=== PATIENT | male | born 1975 | race Caucasian/White ===

== ENCOUNTER 2023-03-07 06:18 | Emergency (ER) | payer OTHER ==
--- OUTSIDE RECORDS SUMMARY | 2023-03-07 06:22 | XMS REPORT | Continuity of Care Document ---
:1975 Author Organization [facility] t Address [address] [place] [address] Care Team Providers Name Role Phone Denisa Newton Attending Clinician Unavailable Alicia Do Attending Clinician Unavailable Payers Payer Name Policy Type Policy Number Effective Date Expiration Date S edmund Ambetter from [id number] Common Spi rit [facility] Ambetter from [id number] Common Spi rit [facility] Ambetter from [id number] Common Spi rit [facility] Ambetter from [id number] Common Spi rit [facility] Problems Condition Condition Condition Status Onset Resolution Last Treating Co mments Source Name Details Category Date Date Treatment Clinician Date Essential Benign Problem Active Common hypertensi essential Spi rit on HTN [facility] Anxiety Anxiety Problem Active Common Spirit [facility] Allergic Allergic Problem Active Commo n rhinitis rhinitis, Spiri t unspecifie - [facility] Cardiac Cardiac Problem Active Common arrhythmia arrhythmia Sp damian [facility] Left LBBB (left Problem Active Commo n bundle bundle Spirit branch branch - [facility] block block) [facility] Allergies, Adverse Reactions, Alerts Allergy Allergy Status Severity Reaction(s) Onset Inactive Treating Comm ents Source Name Type Date Date Clinician escitalo escitalo Active Unknown Commo n pram pram [facility] Social History Social Habit Start Date Stop Date Quantity Comments Source History of Tobacco Use Co mmon [facility] Sex Assigned At Com mon [facility] Smoking Status Start Date Stop Date Source Never Smoker Common [facility] Medications Ordered Filled Start Stop Current Ordering Indication Dosage Frequency Signature Comments Components Source Medication Medication Date Date Medication? Clinician (SIG) Name Name Aznela Martinezithromyci 2021- No QD Azithromyc n 250 MG n 250 MG 02-27 in 250 MG 00:00: 00:00 00 :00 Azithromyci Azithromyci 0 2021- No QD Azithromyc n 250 MG n 250 MG 02-27 in 250 MG 00:00: 00:00 00 :00 Escitalopra Escitalopra 2020-0 No 1{table QD Escitalopr m Oxalate m Oxalate 6-25 t} am Oxalate 10 MG 10 MG 00:00: 10 MG 00 Escitalopra Escitalopra 2020-0 No 1{table QD Escitalopr m Oxalate m Oxalate 6-25 t} am Oxalate 10 MG 10 MG 00:00: 10 MG 00 Escitalopra Escitalopra 2020-0 No 1{table QD Escitalopr m Oxalate m Oxalate 6-25 t} am Oxalate 10 MG 10 MG 00:00: 10 MG 00 Escitalopra Escitalopra 2020-0 No 1{table QD m Oxalate m Oxalate 6-25 t} 10 MG 10 MG 00:00: 00 Escitalopra Escitalopra 2020-0 No 1{table QD Escitalopr m Oxalate m Oxalate 6-25 t} am Oxalate 10 MG 10 MG 00:00: 10 MG 00 Escitalopra Escitalopra 2020-0 No 1{table QD Escitalopr m Oxalate m Oxalate 6-25 t} am Oxalate 10 MG 10 MG 00:00: 10 MG 00 Escitalopra Escitalopra 2020-0 No 1{table QD Escitalopr m Oxalate m Oxalate 6-25 t} am Oxalate 10 MG 10 MG 00:00: 10 MG 00 Escitalopra Escitalopra 2020-0 No 1{table QD Escitalopr m Oxalate m Oxalate 6-25 t} am Oxalate 10 MG 10 MG 00:00: 10 MG 00 Metoprolol Metoprolol No 1{table QD Metoprolol Succinate Succinate t} Succinate ER 25 MG ER 25 MG ER 25 MG Atenolol-Ch Atenolol-Ch No Atenolol-C lorthalidon lorthalidon hlorthalid e 50-25 MG e 50-25 MG one 50-25 MG Metoprolol Metoprolol No Metoprolol Tartrate 25 Tartrate 25 Tartrate MG MG 25 MG Atenolol-Ch Atenolol-Ch No Atenolol-C lorthalidon lorthalidon hlorthalid e 50-25 MG e 50-25 MG one 50-25 MG Metoprolol Metoprolol No Metoprolol Tartrate 25 Tartrate 25 Tartrate MG MG 25 MG Atenolol-Ch Atenolol-Ch No Atenolol-C lorthalidon lorthalidon hlorthalid e 50-25 MG e 50-25 MG one 50-25 MG Metoprolol Metoprolol No Tartrate 25 Tartrate 25 MG MG Atenolol-Ch Atenolol-Ch No lorthalidon lorthalidon e 50-25 MG e 50-25 MG Metoprolol Metoprolol No BID Metoprolol Tartrate 25 Tartrate 25 Tartrate MG MG 25 MG Atenolol-Ch Atenolol-Ch No Atenolol-C lorthalidon lorthalidon hlorthalid e 50-25 MG e 50-25 MG one 50-25 MG Atenolol-Ch Atenolol-Ch No Atenolol-C lorthalidon lorthalidon hlorthalid e 50-25 MG e 50-25 MG one 50-25 MG Metoprolol Metoprolol No 1{table QD Metoprolol Succinate Succinate t} Succinate ER 25 MG ER 25 MG ER 25 MG Atenolol-Ch Atenolol-Ch No Atenolol-C lorthalidon lorthalidon hlorthalid e 50-25 MG e 50-25 MG one 50-25 MG Metoprolol Metoprolol No 1{table QD Metoprolol Succinate Succinate t} Succinate ER 25 MG ER 25 MG ER 25 MG Atenolol-Ch Atenolol-Ch No Atenolol-C lorthalidon lorthalidon hlorthalid e 50-25 MG e 50-25 MG one 50-25 MG Metoprolol Metoprolol No 1{table QD Metoprolol Succinate Succinate t} Succinate ER 25 MG ER 25 MG ER 25 MG Immunizations Ordered Immunization Filled Immunization Date Status Commen ts Source Name Name Adacel (Tdap) Adacel (Tdap) 2021-03-28 Completed Common S pirit 09:02:00 [facility] Adacel (Tdap) Adacel (Tdap) 2021-03-28 Completed Common S pirit 09:02:00 [facility] Adacel (Tdap) Adacel (Tdap) 2021-03-28 Completed Common S pirit 09:02:00 [facility] Adacel (Tdap) Adacel (Tdap) 2021-03-28 Completed Common S pirit 09:02:00 - [facility] Adacel (Tdap) Adacel (Tdap) 2021-03-28 Completed Common S pirit 09:02:00 - [facility] Adacel (Tdap) Adacel (Tdap) 2021-03-28 Completed Common S pirit 09:02:00 - [facility] Adacel (Tdap) Adacel (Tdap) 2021-03-28 Completed Common S pirit 09:02:00 - [facility] Adacel (Tdap) Adacel (Tdap) 2021-03-28 Completed Common S pirit 09:02:00 [facility] Vital Signs Vital Name Observation Time Observation Value Comments Source height 2022-04-02 11:20:00 71 [in_i] [facility] weight 2022-04-02 11:20:00 266.9 [lb_av] Common Spirit [facility] temperature 2022-04-02 11:20:00 98.7 [degF] [facility] bmi 2022-04-02 11:20:00 37.22 kg/m2 [facility] oximetry 2022-04-02 11:20:00 97 % [facility] respiratory rate 2022-04-02 11:20:00 18 /min Comm on [facility] blood pressure 2022-04-02 11:20:00 137 mm[Hg] Common [facility] - systolic [facility] blood pressure 2022-04-02 11:20:00 84 mm[Hg] Common [facility] - diastolic [facility] height 2022-02-27 10:00:00 71 [in_i] [facility] weight 2022-02-27 10:00:00 260 [lb_av] [facility] bmi 2022-02-27 10:00:00 36.26 kg/m2 [facility] weight 2021-10-01 11:40:00 270 [lb_av] [facility] bmi 2021-10-01 11:40:00 37.65 kg/m2 [facility] height 2021-10-01 11:40:00 71 [in_i] [facility] height 2021-06-28 10:00:00 71 [in_i] [facility] weight 2021-06-28 10:00:00 276.0 [lb_av] [facility] temperature 2021-06-28 10:00:00 96.7 [degF] [facility] bmi 2021-06-28 10:00:00 38.49 kg/m2 [facility] oximetry 2021-06-28 10:00:00 98 % [facility] respiratory rate 2021-06-28 10:00:00 18 /min Comm on [facility] blood pressure 2021-06-28 10:00:00 119 mm[Hg] Common [facility] systolic [facility] blood pressure 2021-06-28 10:00:00 80 mm[Hg] [facility] diastolic [facility] Procedures This patient has no known procedures. Encounters Start End Encounter Admission Attending Care Care Encounter Source Date/Time Date/Time Type Type Clinicians Facility Department ID 2022-09-27 Outpatient Newton, STLMLC STLMLC [id number] Common 08:09:01 Avnee [id number] [facility] 2022-04-02 Outpatient Newton, STLMLC STLMLC [id number] Common 11:08:03 Avnee [facility] 2021-10-17 Outpatient Newton, STLMLC STLMLC [id number] Common 14:32:50 Avnee [facility] 2021-10-17 Outpatient Newton, STLMLC STLMLC [id number] Common 14:32:08 Avnee [facility] 2021-10-17 Outpatient Newton, STLMLC STLMLC [id number] Common 13:18:47 Avnee [id number] [facility] 2021-10-17 Outpatient STLMLC STLMLC [id number] Common 13:17:05 [id number] [facility] 2021-10-17 Outpatient Hi, STLMLC STLMLC [id number] Common 13:04:04 Alicia 22573 [facility] 2021-10-17 Outpatient Hi, STLMLC STLMLC [id number] Common 12:58:39 Alicia 20342 [facility] 2021-10-17 Outpatient Hi, STLMLC STLMLC [id number] Common 12:15:52 Alicia [id number] [facility] 2021-10-17 Outpatient STLMLC STLMLC [id number] Common 12:12:05 [id number] [facility] 2022-04-02 2022-04-02 PREV VISIT STLMLC STLMLC [id number] Common 00:00:00 00:00:00 EST AGE Spirit [age] [facility] 2022-02-27 2022-02-27 OFFICE STLMLC STLMLC [id number] Co mmon 00:00:00 00:00:00 VISIT EST Spir it PT LEVEL 3 - [facility] 2022-02-26 2022-02-26 (TEL) STLMLC STLMLC [id number] Co mmon 00:00:00 00:00:00 [facility] 2021-10-01 2021-10-01 OFFICE STLMLC STLMLC [id number] Co mmon 00:00:00 00:00:00 VISIT EST Spir it PT LEVEL 3 [facility] 2021-06-28 2021-06-28 OFFICE STLMLC STLMLC [id number] Co mmon 00:00:00 00:00:00 VISIT EST Spir it PT LEVEL 3 [facility] 2021-04-18 2021-04-18 (TEL) STLMLC STLMLC [id number] Co mmon 00:00:00 00:00:00 [facility] 2021-04-05 2021-04-05 (TEL) STLMLC STLMLC [id number] Co mmon 00:00:00 00:00:00 [facility] 2021-03-28 2021-03-28 Outpatient STLMLC STLMLC [id number] Common 00:00:00 00:00:00 [facility] 2021-03-16 2021-03-16 (TEL) STLMLC STLMLC [id number] Co mmon 00:00:00 00:00:00 [facility] 2021-03-15 2021-03-15 Outpatient STLMLC STLMLC [id number] Common 00:00:00 00:00:00 [facility] 2020-09-04 2020-09-04 Outpatient STLMLC STLMLC [id number] Common 00:00:00 00:00:00 [facility] 2020-08-31 2020-08-31 Outpatient STLMLC STLMLC [id number] Common 00:00:00 00:00:00 [facility] 2019-07-30 2019-07-30 Outpatient [facility] [address] 05:09:00 05:09:00 vero pham Results Test Description Test Time Test Comments Results Result Comments Source Lipid Panel With LDL/HDL Ratio 2022-04-02 00:00:00 Test Item Value Reference Range Interpretation Comme nts Cholesterol, Total (test code 191 mg/dL See_Comment [Automated message] The system = 3-3) which generated this result transmitted ref erence range: 100-199 mg/dL. The reference range was not u sed to interpret this result as normal/abnormal. Triglycerides (test code = 107 mg/dL See_Comment [Automated message] The system 7281-8) which generated this result transmitted ref erence range: 0-149 mg/dL. Th e reference range was not used to interpret this result as dane l/abnormal. HDL Cholesterol (test code = 39 mg/dL See_Comment L [Automated message] The system 2084-) which generated this result transmitted ref erence range: >39 mg/dL. The refe rence range was not used to int erpret this result as dane l/abnormal. UA/M w/rflx Culture, [id number] 00:00:00 Test Item Value Reference Range Interpretation Comments Specific [place] (test 1.021 1.005-1.030 code = 2965-2) pH (test code = 6.0 5.0-7.5 5803-2) Urine-Color (test code Yellow Yellow = 5778-6) Appearance (test code Clear Clear = 5767-9) WBC Esterase (test Negative Negative code = 5799-2) Protein (test code = Negative Negative/Trace 02488-7) Glucose (test code = Negative Negative 2349-9) Ketones (test code = Trace Negative A 2514-8) Occult Blood (test Negative Negative code = 5794-3) Bilirubin (test code = Negative Negative 5770-3) Urobilinogen,Semi-Qn 0.2 mg/dL See_Comment [Autom ated message] (test code = 65773-7) The sy stem which generated this result transmitted ref erence range: 0.2-1.0 mg/dL. The reference r daren was not used to interpret this result as normal/abnor mal. Nitrite, Urine (test Negative Negative code = 5802-4) Microscopic See below: Examination (test code = 66045-4) Urinalysis Reflex (test code = UNLOINC) Hemoglobin [id number] 00:00:00 Test Item Value Reference Range Interpretation Comments Hemoglobin A1c (test 5.3 % See_Comment [Autom ated message] The code = 4548-4) system which generated this result tra nsmitted reference range : 4.8-5.6 %. The referenc e range was not used to interpret this result as normal/abnormal . Comp. Metabolic Panel (14) ([facility])2022-04-02 00:00:00 Test Item Value Reference Range Interpretation Comments Glucose (test code = 105 mg/dL See_Comment H [Autom ated message] 3295-7) The system [employer] generated this result transmitted ref erence range: 65-99 mg /dL. The reference r daren was not used to interpret this result as normal/abnor mal. BUN (test code = 7 mg/dL See_Comment [Automated message] 3094-0) The system [employer] generated this result transmitted ref erence range: 6-24 mg/ dL. The reference r daren was not used to interpret this result as normal/abnor mal. Creatinine (test code 1.20 mg/dL See_Comment [Auto mated message] = 2160-0) The system [employer] generated this result transmitted ref erence range: 0.76-1.2 7 mg/dL. The refe rence range was not u sed to interpret this result as normal/abnor mal. BUN/Creatinine Ratio 6 9-20 L (test code = 3097-3) Sodium (test code = 139 mmol/L See_Comment [Automa alfredo message] 2274-2) The system [employer] generated this result transmitted ref erence range: 134-144 mmol/L. The ref erence range was not u sed to interpret this result as normal/abnor mal. Potassium (test code = 4.5 mmol/L See_Comment [Aut omated message] 2302-3) The system [employer] generated this result transmitted ref erence range: 3.5-5.2 mmol/L. The ref erence range was not u sed to interpret this result as normal/abnor mal. Chloride (test code = 100 mmol/L See_Comment [Auto mated message] 4821-0) The system [employer] generated this result transmitted ref erence range: 96-106 m mol/L. The reference r daren was not used to interpret this result as normal/abnor mal. Carbon Dioxide, Total 25 mmol/L See_Comment [Auto mated message] (test code = 2027-) The sys tem which generated this result transmitted ref erence range: 20-29 mm ol/L. The reference r daren was not used to interpret this result as normal/abnor mal. Calcium (test code = 10.2 mg/dL See_Comment [Autom ated message] 08262-3) The system [facility] generated this result transmitted ref erence range: 8.7-10.2 mg/dL. The refe rence range was not u sed to interpret this result as normal/abnor mal. Protein, Total (test 7.1 g/dL See_Comment [Autom ated message] code = 2885-2) The system [facility] generated this result transmitted ref erence range: 6.0-8.5 g/dL. The reference r daren was not used to interpret this result as normal/abnor mal. Albumin (test code = 4.6 g/dL See_Comment [Autom ated message] 1751-7) The system [facility] generated this result transmitted ref erence range: 4.0-5.0 g/dL. The reference r daren was not used to interpret this result as normal/abnor mal. Globulin, Total (test 2.5 g/dL See_Comment [Auto mated message] code = 00145-0) The system [facility] generated this result transmitted ref erence range: 1.5-4.5 g/dL. The reference r daren was not used to interpret this result as normal/abnor mal. A/G Ratio (test code = 1.8 1.2-2.2 1759-0) Bilirubin, Total (test 1.0 mg/dL See_Comment [Aut omated message] code = 1975-2) The system [facility] generated this result transmitted ref erence range: 0.0-1.2 mg/dL. The reference r daren was not used to interpret this result as normal/abnor mal. Alkaline Phosphatase 90 IU/L See_Comment [Autom ated message] (test code = 6768-6) The sys tem which generated this result transmitted ref erence range: 44-121 I U/L. The reference r daren was not used to interpret this result as normal/abnor mal. AST (SGOT) (test code 31 IU/L See_Comment [Auto mated message] = 1920-8) The system [employer] generated this result transmitted ref erence range: 0-40 IU/ L. The reference range was not used to int erpret this result as normal/abnormal . ALT (SGPT) (test code 42 IU/L See_Comment [Auto mated message] = 1742-6) The system [employer] generated this result transmitted ref erence range: 0-44 IU/ L. The reference range was not used to int erpret this result as normal/abnormal . Uric Acid, [id number] 00:00:00 Test Item Value Reference Range Interpretation Comments Uric Acid (test 9.2 mg/dL See_Comment H [Automated message] The code = 3084-1) system which generated this result tra nsmitted reference range : 3.8-8.4 mg/dL. The refe rence range was not u sed to interpret this result as normal/abnormal . CBC With Differential/[id number] 00:00:00 Test Item Value Reference Range Interpretation Comments WBC (test code = 7.7 x10E3/uL See_Comment [Automated 1390-2) message] The sy stem which generated this result transmitted reference range : 3.4-10.8 x10E3/ uL. The reference r daren was not used to interpret this result as normal/abnormal . RBC (test code = 5.26 x10E6/uL See_Comment [Automate d 539-8) message] The sy stem which generated this result transmitted reference range : 4.14-5.80 x10E6 /uL. The reference r daren was not used to interpret this result as normal/abnormal . Hemoglobin (test code 17.0 g/dL See_Comment [Auto mated = 258-7) message] The sy stem which generated this result transmitted reference range : 13.0-17.7 g/dL. The reference range was not used to interpret this result as normal/abnormal . Hematocrit (test code 47.7 % See_Comment [Auto mated = 6484-3) message] The sy stem which generated this result transmitted reference range : 37.5-51.0 %. Th e reference range was not used to interpret this result as normal/abnormal . MCV (test code = 91 fL See_Comment [Automated 787-2) message] The sy stem which generated this result transmitted reference range : 79-97 fL. The reference range was not used to interpret this result as normal/abnormal . MCH (test code = 32.3 pg See_Comment [Automated 785-6) message] The sy stem which generated this result transmitted reference range : 26.6-33.0 pg. T he reference range was not used to interpret this result as normal/abnormal . MCHC (test code = 35.6 g/dL See_Comment [Automate d 786-4) message] The sy stem which generated this result transmitted reference range : 31.5-35.7 g/dL. The reference range was not used to interpret this result as normal/abnormal . RDW (test code = 12.9 % See_Comment [Automated 788-0) message] The sy stem which generated this result transmitted reference range : 11.6-15.4 %. Th e reference range was not used to interpret this result as normal/abnormal . Platelets (test code 242 x10E3/uL See_Comment [Autom ated = 777-3) message] The sy stem which generated this result transmitted reference range : 150-450 x10E3/u L. The reference r daren was not used to interpret this result as normal/abnormal . Neutrophils (test 62 % Not Estab. % code = 770-8) Lymphs (test code = 28 % Not Estab. % 736-9) Monocytes (test code 8 % Not Estab. % = 5905-5) Eos (test code = 1 % Not Estab. % 713-8) Basos (test code = 1 % Not Estab. % 706-2) Immature Cells (test code = UNLOINC) Neutrophils 4.7 x10E3/uL See_Comment [Automated (Absolute) (test code messag e] The system = 751-8) which generated this result transmitted reference range : 1.4-7.0 x10E3/u L. The reference r daren was not used to interpret this result as normal/abnormal . Lymphs (Absolute) 2.2 x10E3/uL See_Comment [Automate d (test code = 731-0) message] The system which generated this result transmitted reference range : 0.7-3.1 x10E3/u L. The reference r daren was not used to interpret this result as normal/abnormal . Monocytes(Absolute) 0.6 x10E3/uL See_Comment [Automa alfredo (test code = 742-7) message] The system which generated this result transmitted reference range : 0.1-0.9 x10E3/u L. The reference r daren was not used to interpret this result as normal/abnormal . Eos (Absolute) (test 0.1 x10E3/uL See_Comment [Autom ated code = 711-2) message] The s ystem which generated this result transmitted reference range : 0.0-0.4 x10E3/u L. The reference r daren was not used to interpret this result as normal/abnormal . Baso (Absolute) (test 0.1 x10E3/uL See_Comment [Auto mated code = 704-7) message] The s ystem which generated this result transmitted reference range : 0.0-0.2 x10E3/u L. The reference r daren was not used to interpret this result as normal/abnormal . Immature Granulocytes 0 % Not Estab. % (test code = 12076-6) Immature Grans (Abs) 0.0 x10E3/uL See_Comment [Autom ated (test code = 67910-7) messag e] The system which generated this result transmitted reference range : 0.0-0.1 x10E3/u L. The reference r daren was not used to interpret this result as normal/abnormal . NRBC (test code = 03289-7) Hematology Comments: (test code = 38891-6) TSH reflex to [id number] 00:00:00 Test Item Value Reference Range Interpretation Comments TSH (test code = 1.480 uIU/mL See_Comment [Automated message] The 89154-5) system which ge nerated this result tra nsmitted reference range : 0.450-4.500 uIU /mL. The reference range was not used to interpr et this result as normal/abnormal .
--- NOTE | 2023-03-07 07:05 | ER ---
Nurse's Notes [facility] Name: Gold Palacio Age: 47 yrs Sex: Male : 1975 Arrival Date: 03/07/2023 Time: 06:18 Bed 5 Private MD: Diagnosis: Essential (primary) hypertension;Dental caries, dental pain, pulpitis, dental cavity tooth #2 Presentation: 03/07 06:29 Chief complaint: Patient states: toothache since yesterday. and blood pressure elevated rv because of toothache. denies chest pain/SOB. Coronavirus screen: Vaccine status: Patient reports receiving the 2nd dose of the covid vaccine. Ebola Screen: Patient negative for fever greater than or equal to 101.5 degrees Fahrenheit, and additional compatible Ebola Virus Disease symptoms Patient denies exposure to infectious person. Patient denies travel to an Ebola-affected area in the 21 days before illness onset. Initial Sepsis Screen: Does the patient meet any 2 criteria? No. Patient's initial sepsis screen is negative. Does the patient have a suspected source of infection? No. Patient's initial sepsis screen is negative. Risk Assessment: Do you want to hurt yourself or someone else? Patient reports no desire to harm self or others. Onset of symptoms was March 07, 2023. 06:29 Method Of Arrival: Ambulatory 06:29 Acuity: IDALIA 4 rv Triage Assessment: 06:31 General: Appears comfortable, Behavior is calm, cooperative. Pain: Complains of pain in rv upper right first bicuspid. Neuro: Level of Consciousness is awake, alert, obeys commands, Oriented to person, place, time, situation. Cardiovascular: Patient's skin is warm and dry. Respiratory: Airway is patent Respiratory effort is even, unlabored. GI: Reports nausea. : No signs and/or symptoms were reported regarding the genitourinary system. Derm: No signs and/or symptoms reported regarding the dermatologic system. Historical: - Allergies: 06:31 Aspirin; rv 06:31 PENICILLINS; rv 06:31 Codeine; rv - Home Meds: 06:31 metoprolol tartrate 25 mg Oral tablet 2 times per day [Active]; rv - PMHx: 06:31 Hypertensive disorder; rv - PSHx: 06:31 None; rv - Immunization history:: Adult Immunizations up to date. - Social history:: Smoking status: Patient denies any tobacco usage or history of. - Family history:: not pertinent. Screenin:33 [facility] ED Fall Risk Assessment (Adult) History of falling in the last 3 months, rv including since admission No falls in past 3 months (0 pts) Confusion or Disorientation No (0 pts) Intoxicated or Sedated No (0 pts) Impaired Gait No (0 pts) Mobility Assist Device Used No (0 pt) Altered Elimination No (0 pt) Score/Fall Risk Level 0 - 2 = Low Risk Oriented to surroundings, Maintained a safe environment, Educated pt \T\ family on fall prevention, incl call for assistance when getting out of bed, Assessed \T\ reinforced patient's understanding of fall precautions, Provided non-skid footwear, Hourly rounding (assess needs \T\ fall precautionary measures) done, Used ambulatory aids as needed (educated on \T\ assisted with), Used gait belt as appropriate. Abuse screen: Denies threats or abuse. Denies injuries from another. Nutritional screening: No deficits noted. Tuberculosis screening: No symptoms or risk factors identified. Assessment: 07:15 General: Appears in no apparent distress. comfortable, Behavior is calm, cooperative, kc6 appropriate for age. Cardiovascular: Capillary refill < 3 seconds. Respiratory: Airway is patent Trachea midline Respiratory effort is even, unlabored, Respiratory pattern is regular, symmetrical. Vital Signs: 06:29 BP 152 / 87; Pulse 75; Resp 16; Temp 97.6; Pulse Ox 100% ; Weight 128 kg; Height 5 ft. rv 11 in. ; Pain 8/10; 07:15 BP 135 / 96; Pulse 65; Resp 19; Pulse Ox 97% on R/A; kc6 06:29 Body Mass Index 39.36 (128.00 kg, 180.34 cm) rv 06:29 Pain Scale: Adult rv ED Course: 06:22 Patient arrived in ED. [email or web address] 06:23 Edgard Osborn RN is Primary Nurse. rv 06:31 Triage completed. rv 06:33 Arm band placed on right wrist. rv 06:33 Patient has correct armband on for positive identification. Client placed on continuous rv cardiac and pulse oximetry monitoring. NIBP monitoring applied. 06:33 No provider procedures requiring assistance completed. rv 06:46 Marv Mitchell MD is Attending Physician. sp4 07:00 Report received from CHENTE Gomes. kc6 07:03 Adan Preciado DDS is Referral Physician. sp4 07:47 Patient did not have IV access during this emergency room visit. kc6 Administered Medications: 07:15 Drug: cloNIDine PO 0.2 mg Route: PO; kc6 07:47 Follow up: Response: No adverse reaction; Blood pressure is lowered kc6 07:15 Drug: [place] PO 10 mg-325 mg 1 tabs Route: PO; kc6 07:47 Follow up: Response: No adverse reaction; Pain is decreased; RASS: Alert and Calm (0) kc6 07:15 Drug: Ondansetron PO 4 mg Route: PO; kc6 07:47 Follow up: Response: No adverse reaction kc6 07:15 Drug: Ketorolac IM 60 mg Route: IM; Site: left deltoid; kc6 07:47 Follow up: Response: No adverse reaction; Pain is decreased kc6 07:15 Drug: Rocephin (cefTRIAXone) IM 1 grams Route: IM; Site: right deltoid; kc6 07:47 Follow up: Response: No adverse reaction kc6 Medication: 06:33 VIS not applicable for this client. rv Outcome: 07:04 Discharge ordered by . sp4 07:47 Discharged to home ambulatory, with significant other. kc6 07:47 Condition: improved 07:47 Discharge instructions given to patient, Instructed on discharge instructions, follow up and referral plans. medication usage, Demonstrated understanding of instructions, follow-up care, medications, Prescriptions given X 4. 07:48 Patient left the ED. kc6 Signatures: Edgard Osborn RN RN rv Joana Banks Kaitlyn, RN RN kcMarv Randhawa MD MD sp4 Corrections: (The following items were deleted from the chart) 06:32 06:31 Allergies: No Known Allergies; rv rv
--- NOTE | 2023-03-07 07:05 | EDPHYS ---
Physician Documentation [facility] Name: Gold Palacio Age: 47 yrs Sex: Male : 1975 Arrival Date: 03/07/2023 Time: 06:18 Bed 5 Private MD: ED Physician Marv Mitchell HPI: 03/07 06:49 This 47 yrs old Male presents to ER via Ambulatory with complaints of High sp4 Blood Pressure, Dizziness, Nausea, Toothache. 06:49 47-year-old male presents with elevated blood pressure secondary to headache and dental sp4 infection for the past several days. . 06:50 Patient was in a different emergency department and was prescribed clindamycin for sp4 upper right upper dental dental infection. He was also prescribed tramadol that does not seem to be helping. Patient is feeling unwell and he states his blood pressure has been up to 190 systolic at home. Historical: - Allergies: 06:31 Aspirin; rv 06:31 PENICILLINS; rv 06:31 Codeine; rv - Home Meds: 06:31 metoprolol tartrate 25 mg Oral tablet 2 times per day [Active]; rv - PMHx: 06:31 Hypertensive disorder; rv - PSHx: 06:31 None; rv - Immunization history:: Adult Immunizations up to date. - Social history:: Smoking status: Patient denies any tobacco usage or history of. - Family history:: not pertinent. ROS: 06:50 Constitutional: Negative for fever, chills, and weight loss, Eyes: Negative for injury, sp4 pain, redness, and discharge, ENT: Negative for injury, positive right upper dental pain, right upper molar dental decay, #2 molar tooth decay. Neck: Negative for injury, pain, and swelling, Respiratory: Negative for shortness of breath, cough, wheezing, and pleuritic chest pain, Abdomen/GI: Negative for abdominal pain, nausea, vomiting, diarrhea, and constipation, Back: Negative for injury and pain, : Negative for injury, bleeding, discharge, and swelling, MS/Extremity: Negative for injury and deformity, Skin: Negative for injury, rash, and discoloration, Neuro: Negative for headache, weakness, numbness, tingling, and seizure, Psych: Negative for depression, anxiety, Allergy/Immunology: Negative for hives, rash, and allergies Endocrine: Negative for neck swelling, polydipsia, polyuria, polyphagia, and weight changes Hematologic/Lymphatic: Negative for swollen nodes, abnormal bleeding, and unusual bruising 07:01 Cardiovascular: Negative for chest pain, palpitations, and edema. sp4 Exam: 07:01 Constitutional: This is a well developed, well nourished patient who is awake, alert, sp4 and in no acute distress. Head/Face: Normocephalic, atraumatic. Eyes: Pupils equal round and reactive to light, extra-ocular motions intact. Lids and lashes normal. Conjunctiva and sclera are not injected. Cornea within normal limits. Periorbital areas with no swelling, redness, or edema. ENT: Nares patent. No nasal discharge, no septal abnormalities noted. Tympanic membranes are normal and external auditory canals are clear. Oropharynx with no redness, swelling, or masses, exudates, or evidence of obstruction, uvula midline. Mucous membranes moist. Right upper gingiva tenderness, tooth #2 large dental cavity, signs of pulpitis, moderate decay, dental caries, sensitivity to cold air Neck: Trachea midline, no thyromegaly or masses palpated, and no cervical lymphadenopathy. Supple, full range of motion without nuchal rigidity, or vertebral point tenderness. Chest/axilla: Normal chest wall appearance and motion. Nontender with no deformity. No lesions are appreciated. Cardiovascular: Regular rate and rhythm with a normal S1 and S2. No gallops, murmurs, or rubs. Normal PMI, no JVD. No pulse deficits. Respiratory: Lungs have equal breath sounds bilaterally, clear to auscultation and percussion. No rales, rhonchi or wheezes noted. No increased work of breathing, no retractions or nasal flaring. Abdomen/GI: Soft, non-tender, with normal bowel sounds. No distension or tympany. No guarding or rebound. No evidence of tenderness throughout. Back: No spinal tenderness. No costovertebral tenderness. Skin: Warm, dry with normal turgor. Normal color with no rashes, no lesions, and no evidence of cellulitis. MS/ Extremity: Pulses equal, no cyanosis. Neurovascular intact. Full, normal range of motion. Neuro: Awake and alert, GCS 15, oriented to person, place, time, and situation. Cranial nerves II-XII grossly intact. Motor strength 5/5 in all extremities. Sensory grossly intact. Psych: Awake, alert, with orientation to person, place and time. Behavior, mood, and affect are within normal limits Vital Signs: 06:29 BP 152 / 87; Pulse 75; Resp 16; Temp 97.6; Pulse Ox 100% ; Weight 128 kg; Height 5 ft. rv 11 in. ; Pain 8/10; 07:15 BP 135 / 96; Pulse 65; Resp 19; Pulse Ox 97% on R/A; kc6 06:29 Body Mass Index 39.36 (128.00 kg, 180.34 cm) rv 06:29 Pain Scale: Adult rv MDM: 07:04 Patient medically screened. sp4 07:20 Differential diagnosis: hypertensive crisis, Malignant HTN. Data reviewed: vital signs, sp4 nurses notes. ED course: Patient is managed for pain and hypertension. Patient was advised to continue clindamycin p.o. at home will prescribe extra Naprosyn, clonidine, Benadryl, metoprolol succinate will be extended for refills. Will advise patient to see dentist JEB also primary counselor for management of hypertension.. Administered Medications: 07:15 Drug: cloNIDine PO 0.2 mg Route: PO; kc6 07:47 Follow up: Response: No adverse reaction; Blood pressure is lowered kc6 07:15 Drug: [place] PO 10 mg-325 mg 1 tabs Route: PO; kc6 07:47 Follow up: Response: No adverse reaction; Pain is decreased; RASS: Alert and Calm (0) kc6 07:15 Drug: Ondansetron PO 4 mg Route: PO; kc6 07:47 Follow up: Response: No adverse reaction kc6 07:15 Drug: Ketorolac IM 60 mg Route: IM; Site: left deltoid; kc6 07:47 Follow up: Response: No adverse reaction; Pain is decreased kc6 07:15 Drug: Rocephin (cefTRIAXone) IM 1 grams Route: IM; Site: right deltoid; kc6 07:47 Follow up: Response: No adverse reaction kc6 Disposition Summary: 03/07/23 07:04 Discharge Ordered Location: Home sp4 Problem: new sp4 Symptoms: have improved sp4 Condition: Stable sp4 Diagnosis - Essential (primary) hypertension sp4 - Dental caries, dental pain, pulpitis, dental cavity tooth #2 sp4 Followup: sp4 - With: Adan Preciado DDS - When: 1 - 2 days - Reason: Recheck today's complaints Discharge Instructions: - Discharge Summary Sheet sp4 - Hypertension, Adult, [id number] sp4 - Dental Caries, Adult, [id number] sp4 Prescriptions: - metoprolol succinate 25 mg Oral Tablet, Extended Release 24 hr - take 1 tablet by ORAL route once daily Dispense 3-month supply or a total of 90 sp4 tablets; 90 tablet; Refills: 0, Product Selection Permitted - naproxen 500 mg Oral tablet - take 1 tablet by ORAL route every 12 hours PRN pain; 60 tablet; Refills: 0, sp4 Product Selection Permitted - Zofran 4 mg Oral Tablet - take 1 tablet by ORAL route every 12 hours As needed; 20 tablet; Refills: 0, sp4 Product Selection Permitted - Tramadol 50 mg Oral Tablet - take 1 tablet by ORAL route every 8 hours as needed; 12 tablet; Refills: 0, sp4 Product Selection Permitted Signatures: Edgard Osborn RN RN Areli Thomas RN RN kc6 Marv Mitchell MD MD sp4 Corrections: (The following items were deleted from the chart) 06:32 06:31 Allergies: No Known Allergies; rv rv 07:01 06:50 Constitutional: Negative for fever, chills, and weight loss, Eyes: Negative for sp4 injury, pain, redness, and discharge, ENT: Negative for injury, positive right upper dental pain, right upper molar dental decay, #2 molar tooth decay. Neck: Negative for injury, pain, and swelling, sp4
[2023-03-07] MEDS ORDERED: CEFTRIAXONE 1000 MG/VIAL ONE (07:13)
[2023-03-07] MEDS ORDERED: cloNIDine HCL 0.1 MG TAB ONE (07:13)
[2023-03-07] MEDS ORDERED: KETOROLAC 30 MG/ML INJ ONE (07:13)
[2023-03-07] MEDS ORDERED: HYDROCODONE/APAP 10/325 TAB ONE (07:13)
[2023-03-07] MEDS ORDERED: ONDANSETRON 4 MG (ODT) TAB ONE (07:14)
[2023-03-07 07:52] VITALS: TEMP 97.6
[2023-03-07 07:53] VITALS: BP 135/96; O2SAT 97
== END 2023-03-07 07:48 | disposition home or self-care (01) ==
LOC: ER 06:18
DX: I10 Essential (primary) hypertension (principal); K02.9 Dental caries, unspecified; K04.01 Reversible pulpitis; Z88.0 Allergy status to penicillin; Z88.5 Allergy status to narcotic agent; Z88.6 Allergy status to analgesic agent
CPT/HCPCS: 96372; 99284; Q0162; J0696